=== PATIENT | female | born 1945 | race Caucasian/White ===

== ENCOUNTER 2018-05-20 12:40 | Emergency (ER) | payer OTHER ==
[~2018-05-20] VITALS: Ht 157.5 cm; Wt 58.1 kg
[2018-05-20] MEDS ORDERED: JANUMET XR 50-1 EAC1 (12:54)
[2018-05-20] MEDS ORDERED: PROTONIX40 MG (12:54)
[2018-05-20] MEDS ORDERED: ZOFRAN ODT8 MG (12:54)
[2018-05-20] MEDS ORDERED: RANITIDINE HCL300 MG (12:55)
== END 2018-05-20 15:46 | disposition home or self-care (01) ==
LOC: ER 12:40
DX: K25.9 Gastric ulcer, unspecified as acute or chronic, without hemorrhage or perforation (principal); R10.13 Epigastric pain; E11.9 Type 2 diabetes mellitus without complications

== ENCOUNTER 2018-06-06 21:20 | Emergency (ER) | payer OTHER ==
[~2018-06-06] VITALS: Ht 160 cm; Wt 52.6 kg
[~2018-06-06 21:20] MED LIST: JANUMET XR 50-1 EAC1; PROTONIX40 MG; RANITIDINE HCL300 MG; ZOFRAN ODT8 MG
[2018-06-07] MEDS ORDERED: LEVSIN/SL0.125 MG SL (01:53)
[2018-06-07] MEDS ORDERED: PEPCID40 MG PO (01:53)
[2018-06-07] MEDS ORDERED: ZOFRAN ODT4 MG PO (01:53)
== END 2018-06-07 01:54 ==
LOC: ER 21:20
DX: R10.13 Epigastric pain (principal)